=== PATIENT | male | born 1960 | race Caucasian/White ===

== ENCOUNTER 2019-12-10 09:01 | Outpatient (CLI) | payer OTHER, SELFPAY ==
--- NOTE | ~2019-12-10 | CT_ITS ---
EXAMINATION: CT pelvis w con DATE: 12/10/2019 10:04 INDICATION: Left lower quadrant abdominal pain. TECHNIQUE: Computed tomography (CT) of the pelvis was performed with 100 mL Omnipaque 350 intravenous contrast. Automated exposure control and iterative reconstruction technique were employed. The dose- length product was 582.71 mGy-cm. COMPARISON: None FINDINGS: There are small bilateral inguinal hernias containing fat. There are no dilated loops of jeromy wel. The appendix is normal. There are no pathologically enlarged lymph nodes. There is no free intra peritoneal fluid. The prostate is severely enlarged. There is mild lumbar spondylosis. IMPRESSION: 1. Small bilateral inguinal hernias containing fat. 2. Severely enlarged prostate. Reviewed, dictated and finalized at location A. RER
[2019-12-10 09:54] LABS: Blood Urea Nitrogen 18 mg/dL (8-26); Estimated Glomerular Filt Rate 52
== END 2019-12-10 09:02 | disposition home or self-care (01) ==
PROVIDERS: PCP Physician Assistant; Visit Provider Physician Assistant
DX: N40.0 Benign prostatic hyperplasia without lower urinary tract symptoms (principal); K40.20 Bilateral inguinal hernia, without obstruction or gangrene, not specified as recurrent
CPT/HCPCS: 72193; Q9967